=== PATIENT | female | born 1995 | race Caucasian/White ===

== ENCOUNTER 2018-05-10 01:42 | Emergency (ER) | payer BC ==
[2018-05-10] MEDS: AUGMENTIN 875 MG TAB PO (02:26)
== END 2018-05-10 02:44 | disposition home or self-care (01) ==
LOC: M ED 01:42
DX: J02.9 Acute pharyngitis, unspecified (principal)
CPT/HCPCS: 87880

== ENCOUNTER → 2020-03-09 | Outpatient (REF) | payer BC ==
[~2020-03-09] MED LIST: AUGM875T28 PO
[2020-03-09 13:10] LABS: CHLAMYDIA DNA AMPLIFICATION NEGATIVE (NEGATIVE); GC DNA AMPLIFICATION NEGATIVE (NEGATIVE)
== END ==
LOC: M WUC 08:21
PROVIDERS: ATTEND Physician Assistant
DX: R30.0 Dysuria (principal)

== ENCOUNTER 2020-11-05 07:25 | Emergency (ER) | payer BC ==
[~2020-11-05] VITALS: Ht 165.1 cm; Wt 54.3 kg
[2020-11-05 07:26] VITALS: BP 136/87
[2020-11-05] MEDS ORDERED: AZO-95TA3 PO (07:49)
[2020-11-05] MEDS ORDERED: CIPR-249 PO (08:06)
[2020-11-05] MEDS ORDERED: CIPROFLOXACIN 500MG TABLET PO ONE (08:10)
== END 2020-11-05 08:19 | disposition home or self-care (01) ==
LOC: M ED 07:25
DX: N39.0 Urinary tract infection, site not specified (principal)

== ENCOUNTER → 2020-12-29 | Outpatient (REF) | payer BC ==
[~2020-12-29] MED LIST changes: +AZO-95TA3 PO; +CIPR-249 PO
[2020-12-29 13:47] LABS: APPEARANCE, URINE CLEAR (CLEAR); BACTERIA, URINE AUTO NEGATIVE (NEGATIVE); BILIRUBIN, URINE AUTO NEGATIVE (NEGATIVE); BLOOD, URINE BLOOD NEGATIVE (NEGATIVE); COLOR, URINE STRAW (YELLOW); GLUCOSE, URINE (UA) AUTO NEGATIVE (NEGATIVE); KETONE, URINE AUTO NEGATIVE (NEGATIVE); LEUKOCYTE ESTERASE, URINE AUTO NEGATIVE (NEGATIVE); NITRITE, URINE AUTO NEGATIVE (NEGATIVE); PROTEIN, URINE AUTO NEGATIVE (NEGATIVE); RBC, URINE AUTO 0 /HPF (0-3); SPECIFIC GRAVITY URINE AUTO 1.006 (1.002-1.035); SQUAMOUS EPITHELIAL CELL UR AU 0 /HPF (0-6); UROBILINOGEN, URINE AUTO 0.2 mg/dL (0.0-2.0); WBC, URINE AUTO 0 /HPF (0-3)
== END ==
LOC: M SMT 13:07
PROVIDERS: ATTEND Nurse Practitioner Women's Health
DX: N39.0 Urinary tract infection, site not specified (principal); R30.0 Dysuria

== ENCOUNTER → 2021-01-12 | Outpatient (CLI) | payer BC ==
--- NOTE | 2021-01-13 00:32 | REP ---
INDICATION: UTI COMPARISON: None TECHNIQUE: Real time B-mode ultrasound examination using curved array transducer. FINDINGS: Bladder is normal in appearance without wall thickening or mass lesion. Bilateral ureteral jets are identified. Prevoid bladder measures 8.2 x 10.5 x 6.3 cm (354 cc) Postvoid bladder measures 2.2 x 2.1 x 1.8 cm (5 cc) Postvoid residual: 1.4% IMPRESSION: 1. Normal bladder ultrasound. <Electronically signed by Manjinder Hernadez > 01/13/21 0028
== END ==
LOC: M RAD 11:21
PROVIDERS: ATTEND Nurse Practitioner Women's Health
DX: N39.0 Urinary tract infection, site not specified (principal)

== ENCOUNTER → 2021-01-17 | Outpatient (REF) | payer BC | LOC: M LAB REF 16:20 | PROVIDERS: ATTEND Obstetrics & Gynecology | DX: N76.0 Acute vaginitis (principal) ==